=== PATIENT | female | born 1960 ===

== ENCOUNTER 2024-11-27 08:15 | Outpatient (AMB) | payer OTHER, SELFPAY ==
--- OUTSIDE RECORDS SUMMARY | 2024-11-27 08:19 | XMS_ITS | Clinical Summary ---
Author Organization [facility] [address] [facility] Address [address] [place] [address] Phone Care Team Providers Care Audiology Director Name Role Phone North Patel MD Primary Care Provider [phone] Allergies No known active allergies Medications amLODIPine (NORVASC) 5 mg tablet Take 1 tablet (5 mg total) by mouth 1 (one) time each day. 90 each 5 02/16/20 25 Active amLODIPine (NORVASC) 2.5 mg tablet Take 1 tablet (2.5 mg total) by mouth 1 (one) time each day. 90 each 5 11/18/19 25 Discontinued Active Problems Problem Noted Date Diagnosed Date Hyperlipidemia 04/01/2024 Primary hypertension 04/01/2024 Elevated blood pressure reading 02/27/2024 Epidermal cyst 02/27/2024 Encounters Date Type Department Care Team Description 11/17/2024 7:45 AM EDT Office Visit Adult Medicine [facility] [address] [place] [address] North Patel MD Primary hypertension (Primary Dx); Mixed hyperlipidemia; Hyperglycemia from Last 3 Months Immunizations Name Administration Dates Next Due Influenza Quadravalent, MDCK , 0.5ml, preservative free (Flucelvax) 6mo and older 07/18/2021 Influenza trivalent, 0.5mL, preservative free (Fluarix; FluLaval; Fluzone) ages 6mo and older (Afluria) 3 years and older 04/27/2016 Tdap Tetanus diptheria acell ular pertussis (Boostrix; Adacel) 7yo and older 06/10/2014 Surgical History Surgery Date Site/Laterality Comments OTHER SURGICAL HISTORY PROCEDURE: ANALGESIA FOR LABOR/; COMMENT: twins COLONOSCOPY 12/24/2014 PROCEDURE: HISTORICAL COLONOSCOPY; COMMENT: normal; repeat in 10 yrs COLONOSCOPY 09/15/2021 PROCEDURE: HISTORICAL COLONOSCOPY; COMMENT: diverticulosis BREAST BIOPSY PROCEDURE: BX BREAST; PERC NEEDLE CORE W/IMAG GUID; COMMENT: rt.breast bx-benign Medical History Medical History Date Comments Abnormal mammogram 2015 DX:Abnormal m ammogram Abnormal mammogram 09/2018 DX:Abnormal m ammogram Family History Medical History Relation Name Comments Colon cancer Father 60s Uterine cancer Mother Breast cancer Neg Hx Relation Name Status Comments Father Mother Social History Tobacco Use Types Packs/Day Years Used Date Smoking Tobacco: Never Smokeless Tobacco: Never Alcohol Use Standard Drinks/Week Comments No 0 (1 standard drink = 0.6 oz pur e alcohol) Comments Unknown Sex and Gender Information Value Date Recorded Sex Assigned at Not on file Legal Sex Female 11:34 AM EST Gender Identity Not on file Sexual Orientation Not on file Obstetrics History Last Filed Vital Signs Vital Sign Reading Time Taken Comments Blood Pressure 151/74 11/17/2024 7:45 AM EDT provider will rechk Pulse 73 11/17/2024 7:45 AM EDT Temperature 36.2 ??C (97.2 ??F) 11/17/2024 7 :45 AM EDT Respiratory Rate 16 11/17/2024 7:45 AM EDT Oxygen Saturation 95% 11/17/2024 7:4 5 AM EDT Inhaled Oxygen Concentration - - Weight 62.5 kg (137 lb 12.8 oz) 11/17/2024 7:45 AM EDT Height 170.2 cm (5' 7 ) 11/17/2024 7:45 AM EDT Body Mass Index 21.58 11/17/2024 7:45 AM EDT Plan of Treatment Upcoming Encounters Date Type Department Care Team (Late st Contact Info) Description 12/24/2024 4:20 PM EDT Appointment Radiology Department [address] [place] [phone] 02/16/2025 8:45 AM EDT Office Visit Adult Medicine [facility] [address] [place] [phone] North Patel MD [address] [place] Health Maintenance Due Date Last Done Comments Cervical Cancer Screening: HPV 1982 Pneumococcal Vaccine: 50+ Years (1 of 1 - PCV) 11/26/2011 Depression Screening 07/14/2022 HIV Screening 07/14/2022 Social Influencers of Health Screening 07/14/2022 COVID-19 Vaccine ( season) 2024 08/12/2021, 11/27/2020, 10/29/2020 DTaP,Tdap,and Td Vaccines (2 - Td or Tdap) 06/10/2024 06/10/2014 Zoster Vaccines (1 of 2) 08/05/2025 Pos tponed from 11/26/2011 (Patient Refused) Hypertension/CHF/CAD Annual BMP Blood Test 08/18/2025 08/18/2024, 02/26/2024 Breast Cancer Screening 12/04/2025 12/05/19, 12/05/2023, 11/09/2023, Additional history exists Cholesterol Screening (Lipid Panel) 11/17/2029 11/17/2024, 08/18/2024, 02/26/2024 Colorectal Cancer Screening: Colonoscopy 09/15/2031 09/15/2021 RSV Immunization Adult Patients (1 - 1-dose 75+ series) 2036 Hepatitis C Screening Addressed 06/10/2014 Overri dden with the intention of not completing the topic Influenza Vaccine Completed 05/23/2024, , 07/18/2021, Additional history exists HIB Vaccines Aged Out No longer eligi ble based on patient's age to complete this topic HPV Vaccines Aged Out No longer eligi ble based on patient's age to complete this topic Hepatitis A Vaccines Aged Out No long er eligible based on patient's age to complete this topic Hepatitis B Vaccines Aged Out No long er eligible based on patient's age to complete this topic IPV Vaccines Aged Out No longer eligi ble based on patient's age to complete this topic MMR Vaccines Aged Out No longer eligi ble based on patient's age to complete this topic Meningococcal ACWY Vaccine Aged Out N o longer eligible based on patient's age to complete this topic Meningococcal B Vaccine Aged Out No l onger eligible based on patient's age to complete this topic Pneumococcal Vaccine: Pediatrics (0 to 5 Years) and At-Risk Patients (6 to 64 Years) Aged Out No longer eligible based on patient's age to complete this topic RSV Immunization Patients Under 20 months Aged Out No longer eligible based on patient's age to complete this topic Varicella Vaccines Aged Out No longer eligible based on patient's age to complete this topic Procedures Procedure Name Priority Date/Time Associated Diagnosis Comments LIPID PANEL WITH REFLEX TO DIRECT LDL Routine 11/17/2024 8:29 AM EDT Hyperlipidemia, unspecified hyperlipidemia type HEMOGLOBIN A1C Routine 11/17/2024 8:29 AM EDT Hyperglycemia BASIC METABOLIC PANEL Routine 08/18/2024 8:19 AM EST Primary hypertension DIAGNOSTIC MAMMOGRAPHY WITH CAD UNILATERAL Routine 12/05/2023 1:22 PM EDT Other abnormal and inconclusive findings on diagnostic imaging of breast from Last 3 Months or Most Recently Relevant to Health Maintenance Results * (ABNORMAL) Lipid panel with reflex to direct LDL (11/17/2024 8:29 AM EDT) Cholesterol 216(H) 0 - 200 mg/dL LAB CHEMISTRY METHOD 11/17/2024 11:01 AM EDT [facility] Triglycerides 140 0 - 150 mg/dL LAB CHEMISTRY METHOD 11/17/2024 11:01 AM EDT [facility] HDL 53 >=40 mg/dL LAB CHEMISTRY METHOD 11/17/2024 11:01 AM EDT [facility] LDL Calculated 135(H) 0 - 100 mg/dL LAB CHEMISTRY METHOD 11/17/2024 11:01 AM EDT [facility] VLDL Cholesterol Meliton 28 mg/dL LAB CHEMISTRY METHOD 11/17/2024 11:01 AM EDT [facility] Non HDL Chol. (LDL+VLDL) 163(H) <145 mg/dL LAB CHEMISTRY METHOD 11/17/2024 11:01 AM EDT [facility] Chol/HDL Ratio 4.1 0.0 - 4.4 LAB CHEMISTRY METHOD 11/17/2024 11:01 AM EDT [facility] Blood Venous blood specimen / Unknown Venipuncture / Unknown 11/17/2024 8:29 AM EDT 11/17/2024 8:29 AM EDT North Patel MD LAB BLOOD ORDERABLES Final Result Performing Organization Address City/[facility]/ZIP Co de Phone Number [facility] [address] [place] [address], [place] [phone] * Hemoglobin A1c (11/17/2024 8:29 AM EDT) Hemoglobin A1C 5.6 <6.5 % LAB CHEMISTRY METHOD 11/17/2024 2:04 PM EDT [facility] Mean Bld Glu Estim. 114 mg/dL LAB CHEMISTRY METHOD 11/17/2024 2:04 PM EDT [facility] Blood Venous blood specimen / Unknown Venipuncture / Unknown 11/17/2024 8:29 AM EDT 11/17/2024 8:29 AM EDT North Patel MD LAB BLOOD ORDERABLES Final Result [facility] [address] [place] [address], [place] [phone] * (ABNORMAL) Basic metabolic panel (08/18/2024 8:19 AM EST) Sodium 140 133 - 145 mmol/L LAB CHEMISTRY METHOD 08/18/2024 10:41 AM [facility] Potassium 4.2 3.5 - 5.5 mmol/L LAB CHEMISTRY METHOD 08/18/2024 10:41 AM [facility] Chloride 108 96 - 110 mmol/L LAB CHEMISTRY METHOD 08/18/2024 10:41 AM [facility] CO2 27 21 - 32 mmol/L LAB CHEMISTRY METHOD 08/18/2024 10:41 AM [facility] Anion Gap 5 3 - 11 LAB CHEMISTRY METHOD 08/18/2024 10:41 AM [facility] Glucose 109(H) 70 - 100 mg/dL LAB CHEMISTRY METHOD 08/18/2024 10:41 AM [facility] BUN 14 5 - 25 mg/dL LAB CHEMISTRY METHOD 08/18/2024 10:41 AM [facility] Creatinine 0.66 0.50 - 1.10 mg/dL LAB CHEMISTRY METHOD 08/18/2024 10:41 AM [facility] eGFR 99 >=60 mL/min/1. 73m2 LAB CHEMISTRY METHOD 08/18/2024 10:41 AM [facility] Comment:Calculation based on the??Chronic Kidney Disease Epidemiology Collaboration (CKD-EPI) equation refit??without adjustment for race. BUN/Creatinine Ratio 21.2 LAB CHEMISTRY METHOD 08/18/2024 10:41 AM [facility] Calcium 9.2 8.5 - 10.5 mg/dL LAB CHEMISTRY METHOD 08/18/2024 10:41 AM [facility] Blood Venous blood specimen / Unknown Venipuncture / Unknown 08/18/2024 8:19 AM EST 08/18/2024 8:19 AM EST us North Patel MD LAB BLOOD ORDERABLES Final Result [facility] [address] [place] [address], * DIAGNOSTIC MAMMOGRAPHY WITH CAD UNILATERAL (12/05/2023 1:22 PM EDT) Anatomical Region Laterality Modality Mammography 11/12/2023 7:46 AM EDT Narrative 12/05/2023 1:48 PM EDT This is a summary report. The complete report is available in the patient's medical record. If you cannot access the medical record, please contact the sending organization for a detailed fax or copy. Left breast mammogram, additional views. ??Targeted left breast ultrasound. Spot compression CC views with 2D and tomosynthesis was obtained to follow 11/09/23 exam. ??Marker was placed over the area of red skin lesion. Abnormality of concern in the upper lateral left breast corresponds to the marker. ??No other focal abnormalities were identified. Targeted ultrasound of the left breast was performed with attention to the abnormality on the patient's skin at 12:00. ??There is intradermal hypoechoic irregular shaped lesion at 12:00, 5 cm from the nipple measuring 1.1 x 0.4 x 1.4 cm. ??It probably represent epidermal inclusion cyst. ??No other focal abnormalities were identified in the area scanned. Conclusions: Mammographic and ultrasonographic abnormalities respond to duodenal lesion most likely epidermal inclusion cyst. ??Findings were explained to the patient. ??She was advised to follow-up with your provider. ??Consultation with assistant mechanic or surgeon should be considered with anticipation of surgical resection of the lesion. BI-RADS 2, benign findings. Procedure Note Christi Shelley MD - 03/23/2024 This is a summary report. The complete report is available in thepatient's medical record. If you cannot access the medical record, pleasecontact the sending organization for a detailed fax or copy. Left breast mammogram, additional views. Targeted left breastultrasound. Spot compression CC views with 2D and tomosynthesis was obtained to follow11/09/23 exam. Marker was placed over the area of red skin lesion. Abnormality of concern in the upper lateral left breast corresponds to themarker. No other focal abnormalities were identified. Targeted ultrasound of the left breast was performed with attention to theabnormality on the patient's skin at 12:00. There is intradermalhypoechoic irregular shaped lesion at 12:00, 5 cm from the nipplemeasuring 1.1 x 0.4 x 1.4 cm. It probably represent epidermal inclusioncyst. No other focal abnormalities were identified in the area scanned. Conclusions: Mammographic and ultrasonographic abnormalities respond toduodenal lesion most likely epidermal inclusion cyst. Findings wereexplained to the patient. She was advised to follow-up with yourprovider. Consultation with assistant mechanic or surgeon should be consideredwith anticipation of surgical resection of the lesion. BI-RADS 2, benign findings. us Adyr [facility] BI PROCEDURES Final Result from Last 3 Months or Most Recently Relevant to Health Maintenance Insurance [facility] Care Teams Audiology Director Relationship Specialty Start Date End Date North Patel MD [address] [place] [address] PCP - General 01/29/24
[2024-11-27 08:28] VITALS: BP 130/82; PULSE 102; TEMP 37.4; O2SAT 96; BMI 21.3
--- NOTE | 2024-11-27 08:28 | AM.OFFVISNUR ---
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
--- NOTE | 2024-11-27 08:44 | MHC.OFFWIV ---
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 Patient Tobacco Use Status: Never used Tobacco Allergies No Known Allergies Allergy (Verified 11/27/24 08:45) Do you need a note to return to daycare/school/sports/work: No HPI HPI Comments History of Present Illness Details History of Present Illness - The patient is a 64-year-old female past med hx presenting with fever and right-sided chest wall pain. - Fever has persisted over the last 3 days, peaking at 101.5?F, relieved with Tylenol, mainly occurring in the afternoon. - Right-sided chest wall pain intensifies when lying on that side or with deep inspiration but is not associated with symptoms like cough or back radiation. - Denies symptoms such as shortness of breath, headaches, dizziness, cough, congestion, joint pain, or skin rashes. Denies recent travel, leg swelling, not a smoker, no personal or fam hx of blood clots. Does not spend a lot of time in the mor[place]. - Reports increased fatigue in comparison to her usual state. - On recent amlodipine therapy adjustment, from 2.5mg to 5mg, her blood pressure remains controlled with no history of significant cardiac event. Father did have triple bypass in his 60s. . Physical Exam General: Cooperative, healthy appearing, comfortable, no acute distress and well developed Orientation: Patient oriented x3 Limitations: No limitations Head: Normal to inspection Ears: Hearing grossly normal bilaterally, wax in one ear Nose: Normal External nose present Face and sinus: Normal facial exam, no TTP sinuses Eyes: Appearance normal, both eyes and all related structures Neck: Normal visual inspection and Yes full ROM, no neck pain Respiratory: Normal respiratory effort and able to speak in complete sentences. Clear to auscultation bilaterally Cardiovascular: tachy rate and regular rhythm. Normal S1 and S2 Skin: No rashes or lesions noted Neuro: Patient oriented x3 Extremities: Normal to inspection, no swelling in legs, negative Chantell's bilaterally PFSH Social History Patient Tobacco Use Status: Never used Tobacco Review of Systems Const All systems reviewed & are unremarkable except as noted in HPI and below Physical Exam Vital Signs: Last Vital Signs Temp 99.4 F 11/27/24 08:28 Pulse 102 H 11/27/24 08:28 BP 130/82 11/27/24 08:28 Pulse Ox 96 11/27/24 08:28 BMI result Body Mass Index 21.3 Office Procedures EKG Details: ST inversion in II, III, V2, V3 and ?V4. READ as NSR 94BPM[place] [id number], Complete Assessment & Plan Assessment & Plan (1) Right-sided chest wall pain: Code(s): R07.89 - Other chest pain Plan: Due to the patient's fever and right-sided chest discomfort with EKG irregularities with no prior EKG (we checked [facility] as well), it is crucial to pursue urgent evaluation at the emergency department to exclude acute cardiac events such as myocardial ischemia. An immediate workup involving cardiac biomarker levels and potentially a D-dimer test should be conducted to ascertain whether ischemic or thromboembolic processes are at play. Continuous monitoring in the emergency setting is advised, with further imaging such as an echocardiogram to elucidate any underlying cardiac pathology. The patient is directed to the emergency department with anticipatory instructions for expedited care. She is counseled on the necessity of excluding imminent health risks, such as myocardial infarction or pulmonary embolism. Both her her daughter Neli were comfortable with her driving herself as VSS and she is well-appearing. Called [facility] ED with expect. Patient was informed and verbally consented to the use of an ambient scribe for clinic note documentation during this visit. (2) Fever: Code(s): R50.9 - Fever, unspecified Qualifiers: Fever type: unspecified Qualified Code(s): R50.9 - Fever, unspecified Plan: as above Coding Level of Care Code New Pt Level 5 (78923) Diagnoses Right-sided chest wall pain R07.89 Fever, unspecified fever cause R50.9 Fever type: unspecified CPT Codes EKG - CPT: 45308-[id number], Complete ([id number])
== END 2024-11-27 09:45 | disposition home or self-care (01) ==
PROVIDERS: PCP Internal Medicine; Visit Provider Physician Assistant
DX: R07.89 Other chest pain (principal); R50.9 Fever, unspecified

== ENCOUNTER → 2024-11-27 08:15 | Outpatient (BNVA) | payer OTHER, SELFPAY | PROVIDERS: PCP Internal Medicine; Visit Provider Physician Assistant | DX: R07.89 Other chest pain (principal); R50.9 Fever, unspecified | CPT/HCPCS: 93005 ==